=== PATIENT | female | born 2000 | race Caucasian/White ===

== ENCOUNTER 2022-10-18 03:56 | Emergency (ER) | payer BC ==
[~2022-10-18] VITALS: Ht 165.1 cm; Wt 61.2 kg
--- NOTE | 2022-10-18 04:10 | NUR ---
BIBS FOR MAXINE FOR C/O RAPID HEART RATE S/P TAKING GUMMIES. UPON TRIAGE HR 138. PT A/OX4. TOLERATING R/A WELL WITH NO RESP DISTRESS. CONNECTED PT TOP POX AND MONITOR. SAFETY MEASURES IN PLACE.
[2022-10-18] MEDS ORDERED: IV NS 0.9% 1,000 ML IV ONE (04:30)
--- NOTE | 2022-10-18 04:34 | NUR ---
RAC #20G S/L BLOOD COLLECTED AND SENT TO LAB
[2022-10-18 04:58] LABS: BASOPHILS % (AUTO) 0.3 % (0.0-2.0); EOSINOPHILS % (AUTO) 0.1 % (0.0-6.0); HEMATOCRIT 39 % (33-45); HEMOGLOBIN 12.9 g/dL (11.5-14.8); LYMPHOCYTES # (AUTO) 1.3 K/uL (0.8-4.8); MEAN CORPUSCULAR HGB CONC 33 g/dl (31.0-36.0); MEAN CORPUSCULAR VOLUME 90 fL (82-100); MONOCYTES # (AUTO) 0.3 K/uL (0.1-1.30); MONOCYTES % (AUTO) 2.6 % (2.0-12.0); NEUTROPHILS # (AUTO) 9.1 K/uL (1.8-8.9); PLATELET COUNT (AUTO) 226 K/uL (150-450); RED BLOOD CELL COUNT(AUTO) 4.32 MIL/uL (4.0-5.2); WHITE BLOOD COUNT (AUTO) 10.7 K/uL (4.3-11.0)
[2022-10-18 05:18] LABS: CALCIUM, SERUM 9.4 mg/dL (8.5-10.1); POTASSIUM 3.5 mmol/L (3.5-5.1)
[2022-10-18 05:44] VITALS: BP 135/77
--- NOTE | 2022-10-18 05:44 | NUR ---
Patient discharged to home in stable condition. Written and verbal after care instructions given. Patient verbalizes understanding of instruction.
== END 2022-10-18 05:48 | disposition home or self-care (01) ==
LOC: ER 04:00
DX: R00.0 Tachycardia, unspecified (principal); F12.10 Cannabis abuse, uncomplicated
CPT/HCPCS: 99284; 96360; 93005; 85025; 80048; 36415; 84484; J7030